=== PATIENT | female | born 1990 | race Caucasian/White ===

== ENCOUNTER 2021-08-08 13:09 | Emergency (ER) | payer SELFPAY ==
[2021-08-08 13:15] VITALS: BP 151/98; PULSE 103; RESP 18; TEMP 36.8; O2SAT 98; BMI 30.2
[2021-08-08 14:14] LABS: Blood Urine 2+ (Negative); Glucose Urine UA Norm (Normal); Ketones Urine Negative (Negative); Protein Urine Neg (Negative); Specific Gravity, Urine 1.015 (1.005-1.030); Urine Appearance SL Hazy (CLEAR); Urine Color Yellow (Yellow); pH Urine 5 (5-7)
[2021-08-08 14:15] LABS: Add Urine Microscopic? YES; Bilirubin Urine Neg (Negative); Leukocyte Esterase Urine 1+ (Negative); Nitrate Urine Negative (Negative); Urobilinogen Urine Norm (Negative)
[2021-08-08 14:16] LABS: WBC Urine 40-55 /hpf (0-5)
[2021-08-08 14:17] LABS: Bacteria Urine 2+ /hpf; Sperm Urine 1+ /hpf
[2021-08-08 14:18] LABS: Add Urine Culture? Yes
--- NOTE | 2021-08-08 14:46 | W.ED.FEMALGU ---
HPI - Female Genitourinary General: Chief complaint: Urogenital-Female Stated complaint: LOWER BACK PAIN/POSS KINDEY INFECTION Time Seen by Provider: 08/08/21 13:29 History of Present Illness: HPI Narrative: Patient is a 30-year-old female comes to the ED with UTI symptoms and back pain. Patient says that approximately 2 weeks ago she started developing increased urine frequency and burning sensation when urinating. She did not get any treatment or see provider at that time and has just been dealing with the symptoms. Over the past couple days she started developing an aching bilateral lower back pain. Denies any fever, chills, nausea/vomiting, abdominal pain, bowel symptoms. Associated symptoms: Deny abdominal pain, headache(s) or nausea Date of Last Menstrual Period: 07/22/21 Review of Systems Const: Denies: fever(s), chills or fatigue Eyes: Denies: change in vision or eye discomfort ENMT: Denies: throat pain, odynophagia, nasal discharge or nasal congestion Card: Denies: chest pain, palpitations, edema, swelling of feet/ankles, dyspnea on exertion or orthopnea Resp: Denies: dyspnea, productive cough or non-productive cough GI: Denies: abdominal pain, nausea, vomiting, diarrhea, constipation or hematochezia : Reports: flank pain (Bilateral back pain.) and dysuria; Denies: hematuria Musc: Denies: neck pain, back pain or extremity swelling Skin/Breast: Denies: rash or new lesions Neuro: Denies: headache(s), numbness in extremities or weakness in extremities [facility] ED Female Reproductive History: Date of last menstrual period: 07/22/21 Physical Exam Const: COMMON NORMALS: no acute distress, patient oriented x3 and alert GENERAL APPEARANCE: cooperative and comfortable HENMT: COMMON NORMALS: normocephalic HEAD & SCALP: normocephalic MOUTH: Normal oral and palatal mucosa present THROAT: posterior oropharynx normal and uvula midline Neck/C-Spine: COMMON NORMALS: supple GENERAL: Yes normal visual inspection Resp: COMMON NORMALS: normal respiratory effort, No retractions, No use of accessory muscles and clear to auscultation bilaterally AUSCULTATION: clear to auscultation bilaterally Cardio: COMMON NORMALS: regular rate, regular rhythm, S1 normal heart sound present, S2 normal heart sound present, No gallops present (Cardio), No clicks present (Cardio), No murmurs present (Cardio) and Peripheral pulses 2+ throughout RATE: regular rate RHYTHM: regular rhythm HEART SOUNDS: S1 normal heart sound present and S2 normal heart sound present PERIPHERAL PULSES: Peripheral pulses 2+ throughout GI: COMMON NORMALS: Normal to inspection, nondistended, normoactive bowel sounds present, Soft to palpation, non-tender and no masses PALPATION: Yes Soft to palpation : COMMON NORMALS: Yes no CVA tenderness BLADDER/KIDNEY EXAM: Yes no CVA tenderness Back/Pelvis: COMMON NORMALS: no CVA tenderness Extremity: COMMON NORMALS: normal to inspection Neuro: COMMON NORMALS: patient oriented x3 and moves all extremities SENSORIUM/ORIENTATION: Yes alert Skin: GENERAL SKIN EXAM: dry skin Course Vital Signs: Vital signs: Vital Signs Temperature 98.2 F 08/08/21 13:15 Pulse Rate 67 08/08/21 16:44 Respiratory Rate 18 08/08/21 16:44 Blood Pressure 141/98 08/08/21 16:44 Pulse Oximetry 100 08/08/21 16:44 MDM - Female MDM Narrative: Medical decision making narrative: Patient is a 30 old female comes to the ED with UTI symptoms and bilateral lower back/flank pain. Patient's vitals are stable. She appears nontoxic and in no acute distress or pain. UA shows an infection. CBC and CMP were unremarkable. Patient diagnosed with a UTI likely progressing up the ureters. Patient discharged home with ciprofloxacin and Celebrex. She was told to follow-up with PCP in 7 to 10 days for reevaluation. Return to ED precautions given. Patient understood agree with plan. Lab Data: Attestation: I reviewed the patient's lab results. Labs: Lab Results 08/08/21 08/08/21 08/08/21 13:49 15:34 15:34 WBC 10.6 10^3/uL H 10 ^3/uL (4.0-10.0) RBC 4.73 10^6/uL 10^6 /uL (4.1-5.3) Hgb 11.4 g/dL L g/dL (11.5-15.3) Hct 37.5 % % (37.0-47.0) MCV 79.3 fl L fl (81-99) MCH 24.1 pg L pg (28.0-34.0) MCHC 30.4 g/dL g/dL (30.0-36.0) RDW 15.0 % % (12.1-15.1) Plt Count 386 10^3/cmm 10^3 /cmm (130-400) MPV 11.7 fL H fL (7.4-10.4) Neut % (Auto) 69.5 % % Lymph % (Auto) 18.7 % % [place] % (Auto) 9.4 % % Eos % (Auto) 1.5 % % Baso % (Auto) 0.6 % % Neut # (Auto) 7.35 10^3/uL 10^3 /uL (1.8-7.7) Lymph # (Auto) 2.0 10^3/uL 10^3/ uL (0.8-4.8) [place] # (Auto) 1.0 10^3/uL H 10^ 3/uL (0.2-0.9) Eos # (Auto) 0.2 10^3/uL 10^3/ uL (0.0-0.8) Baso # (Auto) 0.1 10^3/uL 10^3/ uL (0.0-0.1) Nucleated RBC % (a uto) 0 % % Nucleated RBCs # 0.0 /100WBC /100W BC Sodium 140 mmol/L mmol/L (136-145) Potassium 3.8 mmol/L mmol/L (3.5-5.1) Chloride 105 mmol/L mmol/L (98-107) Carbon Dioxide 24 mmol/L mmol/L (22-29) Anion Gap 14.8 (5-19) BUN 7 mg/dL mg/dL (6-20) Creatinine 0.7 mg/dL mg/dL (0.5-0.9) GFR Calculation 99.6 mL/min mL/mi n (90-130) Glucose 86 mg/dL mg/dL (65-115) Calculated Osmolal ity 287 mOsm/kg mOsm/ kg (285-295) Calcium 10.0 mg/dL mg/dL (8.5-10.5) Total Bilirubin 0.4 mg/dL mg/dL (0.15-1.2) AST 13 U/L U/L (0-32) ALT 16 U/L U/L (0-33) Alkaline Phosphata se 74 IU/L IU/L (35-105) Total Protein 7.8 g/dL g/dL (6.6-8.7) Albumin 4.2 g/dL g/dL (3.5-5.2) Globulin 3.6 g/dL g/dL (1.3-4.6) HCG, Qual Urine Color Yellow (Yellow) Urine Appearance Sl hazy (CLEAR) Urine pH 5 (5-7) Ur Specific Gravit y 1.015 (1.005-1.030) Urine Protein Neg (Negative) Urine Glucose (UA) Norm (Normal) Urine Ketones Negative (Negative) Urine Blood 2+ H (Negative) Urine Nitrate Negative (Negative) Urine Bilirubin Neg (Negative) Urine Urobilinogen Norm mg/dL mg/dL (Negative) Ur Leukocyte Shawna ase 1+ H (Negative) Urine RBC 10-15 /hpf H /hpf (0-2) Urine WBC 40-55 /hpf H /hpf (0-5) Ur Squamous Epith Cells 5-10 /hpf H /hpf (0-5) Amorphous Sediment Not Reportable Urine Bacteria 2+ /hpf H /hpf (NONE) Urine Sperm 1+ /hpf /hpf 08/08/21 15:34 WBC RBC Hgb Hct MCV MCH MCHC RDW Plt Count MPV Neut % (Auto) Lymph % (Auto) [place] % (Auto) Eos % (Auto) Baso % (Auto) Neut # (Auto) Lymph # (Auto) [place] # (Auto) Eos # (Auto) Baso # (Auto) Nucleated RBC % (a uto) Nucleated RBCs # Sodium Potassium Chloride Carbon Dioxide Anion Gap BUN Creatinine GFR Calculation Glucose Calculated Osmolal ity Calcium Total Bilirubin AST ALT Alkaline Phosphata se Total Protein Albumin Globulin HCG, Qual Negative (Negative) Urine Color Urine Appearance Urine pH Ur Specific Gravit y Urine Protein Urine Glucose (UA) Urine Ketones Urine Blood Urine Nitrate Urine Bilirubin Urine Urobilinogen Ur Leukocyte Shawna ase Urine RBC Urine WBC Ur Squamous Epith Cells Amorphous Sediment Urine Bacteria Urine Sperm Discharge Plan Discharge Patient Disposition: Home Clinical Impression: UTI (urinary tract infection) Qualifiers: Urinary tract infection type: acute cystitis Hematuria presence: with hematuria Qualified Code(s): N30.01 - Acute cystitis with hematuria Condition: Stable Prescriptions: New ciprofloxacin HCl 500 mg tablet 500 mg PO BID 7 Days Qty: 14 RF: 0 Celebrex 100 mg capsule 100 mg PO BID PRN (Reason: pain) Qty: 20 RF: 0 Discharge Orders: Discharge ED (Routine); Ordered 08/08/21 Ordered By: Dennis Corbin Referrals: Rigoberto Randolph MD [Primary Care Provider] - Discharge Diet: Regular Discharge Activity: Resume usual activity Patient Instructions: Urinary Tract Infection in Women (ED), Dysuria (ED) Activity Restrictions/Additional Instructions: Follow-up with medical provider as directed 7 to 10 days reevaluation. Take medications as prescribed. Drink plenty of fluids and stay hydrated. Return to the ER or your medical provider if condition worsens. Please read and understand discharge instructions. Thank you for choosing [facility] for your healthcare needs today. Please realize this is an emergency room and that we are providing you with a medical screening exam and this may not be complete and all inclusive of all the testing and or work up that you may need to determine your ailment or severity of your illness. It is very important that you follow up as instructed or that you return to the Emergency Department should you have concerns or if your condition changes or worsens in any way. Coding Level of Care Code ED Compensation Programs Manager for [employer] Exam Comprehensive
[2021-08-08] MEDS: HYDROcodone-acetaminophen 5-325 mg Tablet 1 TAB PO (15:22)
[2021-08-08 15:42] LABS: Basophils # 0.1 10^3/uL (0.0-0.1); Basophils % 0.6 %; Eosinophils # 0.2 10^3/uL (0.0-0.8); Eosinophils % 1.5 %; Hematocrit 37.5 % (37.0-47.0); Hemoglobin 11.4 g/dL (11.5-15.3); Lymphocytes % 18.7 %; Mean Corpuscular HGB Conc 30.4 g/dL (30.0-36.0); Mean Corpuscular Hemoglobin 24.1 pg (28.0-34.0); Mean Corpuscular Volume 79.3 fl (81-99); Mean Platelet Volume 11.7 fL (7.4-10.4); Monocytes % 9.4 %; Neutrophils # 7.35 10^3/uL (1.8-7.7); Neutrophils % 69.5 %; Nucleated Red Blood Cells % 0 %; Platelet Count 386 10^3/cmm (130-400); Red Blood Count 4.73 10^6/uL (4.1-5.3); White Blood Count 10.6 10^3/uL (4.0-10.0)
[2021-08-08 15:52] VITALS: BP 156/64; PULSE 74; RESP 17; O2SAT 94
[2021-08-08 16:04] LABS: Alanine Aminotransferase 16 U/L (0-33); Albumin Level 4.2 g/dL (3.5-5.2); Alkaline Phosphatase 74 IU/L (35-105); Anion Gap 14.8 (5-19); Aspartate Amino Transferase 13 U/L (0-32); Blood Urea Nitrogen 7 mg/dL (6-20); Carbon Dioxide 24 mmol/L (22-29); Chloride 105 mmol/L (98-107); Globulin 3.6 g/dL (1.3-4.6); Glomerular Filtration Rate 99.6 mL/min (90-130); Glucose 86 mg/dL (65-115); Osmolality Calculated 287 mOsm/kg (285-295); Potassium 3.8 mmol/L (3.5-5.1); Sodium 140 mmol/L (136-145); Total Bilirubin 0.4 mg/dL (0.15-1.2); Total Protein 7.8 g/dL (6.6-8.7)
[2021-08-08 16:06] LABS: HCG, Serum Qual Negative (Negative)
[2021-08-08] MEDS: ciprofloxacin 500 mg Tablet PO (16:38)
[2021-08-08 16:44] VITALS: BP 141/98; PULSE 67; RESP 18; O2SAT 100
== END 2021-08-08 16:40 | disposition home or self-care (01) ==
PROVIDERS: Emergency Medicine; Emergency Provider Physician Assistant; PCP Family Medicine
DX: N30.01 Acute cystitis with hematuria (principal)
CPT/HCPCS: 80053; 81001; 84703; 85025; 87077; 87086; 87186; 99283

== ENCOUNTER 2023-01-18 11:35 | Emergency (ER) | payer SELFPAY ==
[2023-01-18 11:40] VITALS: BP 144/85; PULSE 96; RESP 16; TEMP 36.6; O2SAT 100
--- NOTE | 2023-01-18 12:14 | ED_ITS ---
HPI - Nausea/Vomiting/Diarrhea General: Chief complaint: Nausea/Vomiting/Diarrhea Stated complaint: N/V Chills Time Seen by Provider: 01/18/23 11:59 History of Present Illness: Patient is a 32-year-old female comes to the ED with nausea vomiting diarrhea. Patient's symptoms started around 1:00 this morning. She states that her family has been having same symptoms preceding the start of her symptoms. She reports having nausea, vomiting, diarrhea chills and body aches. She has had multiple episodes of emesis and diarrhea since onset of symptoms. She is having trouble keeping any food or fluids down. Denies any fevers, abdominal pain, chest pain, shortness of breath, upper respiratory symptoms, bladder symptoms. Associated nausea: Yes Associated symtoms: Reports nausea; Denies change in vision, chest pain, dysuria, fatigue, headache(s) or palpitations Review of Systems Const: Reports: chills and body aches; Denies: fever(s) or fatigue Eyes: Denies: change in vision or eye discomfort ENMT: Denies: throat pain, odynophagia, nasal discharge or nasal congestion Card: Denies: chest pain, palpitations, edema, swelling of feet/ankles, dyspnea on exertion or orthopnea Resp: Denies: dyspnea, productive cough or non-productive cough GI: Reports: nausea, vomiting and diarrhea; Denies: abdominal pain, constipation or hematochezia : Denies: flank pain, dysuria or hematuria Musc: Denies: neck pain, back pain or extremity swelling Skin/Breast: Denies: rash or new lesions Neuro: Denies: headache(s), numbness in extremities or weakness in extremities PENDING SALE TO [facility] ED PFSH: Medical History (Updated 01/18/23 @ 13:18 by DANYELLE Stanley) No pertinent family history No pertinent past medical history Physical Exam Const: COMMON NORMALS: no acute distress, patient oriented x3 and alert GENERAL APPEARANCE: cooperative and comfortable HENMT: COMMON NORMALS: normocephalic HEAD & SCALP: normocephalic MOUTH: Normal oral and palatal mucosa present THROAT: posterior oropharynx normal and uvula midline Neck/C-Spine: COMMON NORMALS: supple GENERAL: Yes normal visual inspection Resp: COMMON NORMALS: normal respiratory effort, No retractions, No use of accessory muscles and clear to auscultation bilaterally AUSCULTATION: clear to auscultation bilaterally Cardio: COMMON NORMALS: regular rate, regular rhythm, S1 normal heart sound present, S2 normal heart sound present, No gallops present (Cardio), No clicks present (Cardio), No murmurs present (Cardio) and Peripheral pulses 2+ throug hout RATE: regular rate RHYTHM: regular rhythm HEART SOUNDS: S1 normal heart sound present and S2 normal heart sound present PERIPHERAL PULSES: Peripheral pulses 2+ throughout GI: COMMON NORMALS: Normal to inspection, nondistended, normoactive bowel sounds present, Soft to palpation, non-tender and no masses PALPATION: Yes Soft to palpation : COMMON NORMALS: Yes no CVA tenderness BLADDER/KIDNEY EXAM: Yes no CVA tenderness Back/Pelvis: COMMON NORMALS: no CVA tenderness Extremity: COMMON NORMALS: normal to inspection Neuro: COMMON NORMALS: patient oriented x3 SENSORIUM/ORIENTATION: Yes alert GAIT: Yes Normal gait present Skin: GENERAL SKIN EXAM: dry skin Course Vital Signs: Vital signs: Vital Signs Temperature 97.9 F 01/18/23 11:40 Pulse Rate 96 01/18/23 11:40 Respiratory Rate 16 01/18/23 11:40 Blood Pressure 165/90 01/18/23 12:25 Pulse Oximetry 98 01/18/23 12:25 Oxygen Delivery Me thod 01/18/23 12:25 MDM - Nausea/Vomiting/Diarrhea Medical Decision Making Patient is a 32-year-old female comes to the ED with nausea vomiting diarrhea. Patient's symptoms started around 1:00 this morning. She states that her family has been having same symptoms preceding the start of her symptoms. She reports having nausea, vomiting, diarrhea chills and body aches. She has had multiple episodes of emesis and diarrhea since onset of symptoms. She is having trouble keeping any food or fluids down. Denies any fevers, abdominal pain, chest pain, shortness of breath, upper respiratory symptoms, bladder symptoms. Vitals are stable. Patient appears nontoxic and in no acute distress or pain. Labs are all unremarkable. Patient was given 1 L of IV fluids and Zofran and her symptoms improved. She was stable for discharge home and diagnosed with viral syndrome.She was sent home with a prescription for Zofran help with nausea. Return to ED precautions given. Follow-up PCP in the next week for reevaluation. Patient understood agree with plan. Lab Data I reviewed the patient's lab results. 01/18/23 12:15 01/18/23 12:15 Laboratory Results WBC 12.4 10^3/uL (4.0-10.0) H 01/18/23 12:15 RBC 5.16 10^6/uL (4.1-5.3) 01/18/23 12:15 Hgb 10.6 g/dL (11.5-15.3) L 01/18/23 12:15 Hct 38.0 % (37.0-47.0) 01/18/23 12:15 MCV 73.6 fl (81-99) L 01/18/23 12:15 MCH 20.5 pg (28.0-34.0) L 01/18/23 12:15 MCHC 27.9 g/dL (30.0-36.0) L 01/18/23 12:15 RDW 16.1 % (12.1-15.1) H 01/18/23 12:15 Plt Count 486 10^3/cmm (130-400) H 01/18/23 12:15 MPV 10.9 fL (7.4-10.4) H 01/18/23 12:15 Neut % (Auto) 90.9 % 01/18/23 12:15 Lymph % (Auto) 3.2 % 01/18/23 12:15 [place] % (Auto) 4.1 % 01/18/23 12:15 Eos % (Auto) 1.3 % 01/18/23 12:15 Baso % (Auto) 0.3 % 01/18/23 12:15 Neut # (Auto) 11.26 10^3/uL (1.8-7.7) H 01/18/23 12:15 Lymph # (Auto) 0.4 10^3/uL (0.8-4.8) L 01/18/23 12:15 [place] # (Auto) 0.5 10^3/uL (0.2-0.9) 01/18/23 12:15 Eos # (Auto) 0.2 10^3/uL (0.0-0.8) 01/18/23 12:15 Baso # (Auto) 0.0 10^3/uL (0.0-0.1) 01/18/23 12:15 Nucleated RBC % (auto) 0 % 01/18/23 12:15 Nucleated RBCs # 0.0 /100WBC 01/18/23 12:15 Sodium 139 mmol/L (136-145) 01/18/23 12:15 Potassium 4.3 mmol/L (3.5-5.1) 01/18/23 12:15 Chloride 105 mmol/L (98-107) 01/18/23 12:15 Carbon Dioxide 21 mmol/L (22-29) L 01/18/23 12:15 Anion Gap 17.3 (5-19) 01/18/23 12:15 BUN 11 mg/dL (6-20) 01/18/23 12:15 Creatinine 0.7 mg/dL (0.5-0.9) 01/18/23 12:15 GFR Calculation 98.3 mL/min (90-130) 01/18/23 12:15 Glucose 120 mg/dL (65-115) H 01/18/23 12:15 Calculated Osmolality 289 mOsm/kg (285-295) 01/18/23 12:15 Calcium 9.2 mg/dL (8.5-10.5) 01/18/23 12:15 Total Bilirubin 0.6 mg/dL (0.15-1.2) 01/18/23 12:15 AST 19 U/L (0-32) 01/18/23 12:15 ALT 13 U/L (0-33) 01/18/23 12:15 Alkaline Phosphatase 93 U/L (35-105) 01/18/23 12:15 Total Protein 7.9 g/dL (6.6-8.7) 01/18/23 12:15 Albumin 4.4 g/dL (3.5-5.2) 01/18/23 12:15 Globulin 3.5 g/dL (1.3-4.6) 01/18/23 12:15 Lipase 44 U/L (13-60) 01/18/23 12:15 HCG, Qual Negative (Negative) 01/18/23 12:15 Discharge Plan Discharge Patient Disposition: Home Clinical Impression: Viral syndrome Condition: Stable Prescriptions: New ondansetron 4 mg tablet,disintegrating 4 mg PO Q8H PRN (Reason: nausea and vomiting) Qty: 20 0RF No Action ibuprofen 200 mg Tablet 800 mg PO Q6H PRN (Reason: Pain) Discharge Orders: Discharge ED (Routine); Ordered 01/18/23 Ordered By: Dennis Corbin Discharge Diet: Advance as tolerated and Clear Liquid Discharge Activity: Resume usual activity Patient Instructions: Acute Nausea and Vomiting (DC), Viral Syndrome - Adult Activity Restrictions/Additional Instructions: Follow-up with medical provider as directed. Make sure you drink plenty fluids and stay hydrated. Take medications as prescribed. Return to the ER or your medical provider if condition worsens. Please read and understand discharge instructions. Thank you for choosing [facility] for your healthcare needs today. Please realize this is an emergency room and that we are providing you with a medical screening exam and this may not be complete and all inclusive of all the testing and or work up that you may need to determine your ailment or severity of your illness. It is very important that you follow up as instructed or that you return to the Emergency Department should you have concerns or if your condition changes or worsens in any way. Coding Level of Care Code ED Lathe Tender for Sheila Gutierrez
[2023-01-18] MEDS: ondansetron 2 mg/ML SDV 2 mL 4 MG IVP (12:23)
[2023-01-18] MEDS: sodium chloride 0.9% 1,000 ML 999 ML IV (12:23)
[2023-01-18 12:25] VITALS: BP 165/90; O2SAT 98
[2023-01-18 12:29] LABS: Basophils % 0.3 %; Eosinophils # 0.2 10^3/uL (0.0-0.8); Eosinophils % 1.3 %; Hemoglobin 10.6 g/dL (11.5-15.3); Lymphocytes # 0.4 10^3/uL (0.8-4.8); Lymphocytes % 3.2 %; Mean Corpuscular HGB Conc 27.9 g/dL (30.0-36.0); Mean Corpuscular Hemoglobin 20.5 pg (28.0-34.0); Mean Corpuscular Volume 73.6 fl (81-99); Mean Platelet Volume 10.9 fL (7.4-10.4); Monocytes # 0.5 10^3/uL (0.2-0.9); Monocytes % 4.1 %; Neutrophils # 11.26 10^3/uL (1.8-7.7); Neutrophils % 90.9 %; Nucleated Red Blood Cells % 0 %; Platelet Count 486 10^3/cmm (130-400); Red Blood Count 5.16 10^6/uL (4.1-5.3); Red Cell Distribution Width 16.1 % (12.1-15.1); White Blood Count 12.4 10^3/uL (4.0-10.0)
[2023-01-18 12:46] LABS: HCG, Serum Qual Negative (Negative)
[2023-01-18 12:51] LABS: Alanine Aminotransferase 13 U/L (0-33); Albumin Level 4.4 g/dL (3.5-5.2); Alkaline Phosphatase 93 U/L (35-105); Anion Gap 17.3 (5-19); Aspartate Amino Transferase 19 U/L (0-32); Blood Urea Nitrogen 11 mg/dL (6-20); Calcium 9.2 mg/dL (8.5-10.5); Carbon Dioxide 21 mmol/L (22-29); Chloride 105 mmol/L (98-107); Globulin 3.5 g/dL (1.3-4.6); Glomerular Filtration Rate 98.3 mL/min (90-130); Glucose 120 mg/dL (65-115); Lipase 44 U/L (13-60); Osmolality Calculated 289 mOsm/kg (285-295); Potassium 4.3 mmol/L (3.5-5.1); Sodium 139 mmol/L (136-145); Total Bilirubin 0.6 mg/dL (0.15-1.2); Total Protein 7.9 g/dL (6.6-8.7)
--- NOTE | 2023-01-19 13:37 | DCPLANNER ---
Addendum entered by Moriah Holcomb 01/20/23 13:26: operating room manager called patient due to no primary care physician - patient stated waiting on getting insurance before getting a physician. Original Note: operating room manager called patient due to no primary care physician - no answer at this time.
== END 2023-01-18 13:34 | disposition home or self-care (01) ==
PROVIDERS: Emergency Provider Physician Assistant
DX: B34.9 Viral infection, unspecified (principal)
CPT/HCPCS: 80053; 83690; 84703; 85025; 96361; 96374; 99284; J2405; J7030